=== PATIENT | male | born 1975 | race American Indian/Alaskan Native ===

== ENCOUNTER 2017-05-20 09:06 | Emergency (ER) | payer OTHER ==
[2017-05-20 09:52] LABS: Basophils % (Auto) 0.6 % (0.0-1.8); Eosinophils % (Auto) 1.7 % (0.0-4.3); Hematocrit 44.4 % (35.5-45.6); Hemoglobin 14.9 gm/dl (11.8-15.2); Mean Corpuscular HGB Conc 34 % (32-34); Mean Corpuscular Hemoglobin 29 pg (28-32); Mean Corpuscular Volume 86 fl (84-94); Platelet Count 160 K/mm3 (140-440); Red Blood Count 5.16 M/mm3 (3.65-5.03); Red Cell Distribution Width 14.4 % (13.2-15.2); White Blood Count 7.5 K/mm3 (4.5-11.0)
[2017-05-20 09:54] LABS: Anion Gap 18 mmol/L; BUN/Creatinine Ratio 14.28; Blood Urea Nitrogen 20 mg/dL (9-20); Calcium 8.8 mg/dL (8.4-10.2); Carbon Dioxide 24 mmol/L (22-30); Chloride 101.3 mmol/L (98-107); Glucose 85 mg/dL (75-100); Potassium 3.9 mmol/L (3.6-5.0); Sodium 139 mmol/L (137-145)
[2017-05-20] MEDS ORDERED: REGLAN IV ONE (16:10)
[2017-05-20] MEDS ORDERED: BENADRYL IV ONE (16:10)
--- NOTE | 2017-05-20 16:48 | Cat Scan Report ---
CRANIAL CT SCAN: Headache. Serial contiguous axial images were obtained through the cranium. Intravenous contrast material was not administered. The ventricles are normal in size and appearance. There is no mass effect or midline shift. No areas of abnormally increased or decreased attenuation are seen. No mass lesion is seen. The mastoid air cells and visualized portions of the sinuses are normal. IMPRESSION: Cranial CT scan within normal limits.
[2017-05-20 18:17] VITALS: BP 175/118
--- NOTE | 2017-05-20 18:20 | Emergency Department Report ---
ED General Adult HPI - General Chief complaint: Headache Stated complaint: PAIN IN BACK OF HEAD/CHEST PAIN Time Seen by Provider: 05/20/17 15:07 Source: patient Mode of arrival: Ambulatory Limitations: No Limitations - History of Present Illness Initial comments: Patient is a 41-year-old male past medical history high blood pressure. Patient has headache that has been going on for the last week. Patient rates pain as a 6 out of 10 nonradiating. Moving has had makes the pain worse and nothing makes it better. He has tried some Tylenol without any relief. He is also concerned about not having any blood pressure medication. No nausea no vomiting no vision changes. No traumatic injury. Severity scale (0 -10): 3 - Related Data Previous Rx's Medication Instructions Recorded Last Taken Type Acetaminophen [Acetaminophen TAB] 500 mg PO Q6HR #20 tablet 05/20/17 Unknown Rx Lisinopril [Zestril TAB] 20 mg PO BID #30 tablet 05/20/17 04/29/17 Rx Naproxen [Naprosyn TAB] 375 mg PO BID #20 tablet 05/20/17 Unknown Rx Allergies Allergy/AdvReac Type Severity Reaction Status Date / Time aspirin Allergy Hives Verified 05/20/17 18:46 ED Review of Systems ROS: Stated complaint: PAIN IN BACK OF HEAD/CHEST PAIN Other details as noted in HPI Constitutional: denies: chills, fever Eyes: denies: eye pain, eye discharge, vision change ENT: denies: ear pain, throat pain Respiratory: denies: cough, shortness of breath, wheezing Cardiovascular: denies: chest pain, palpitations Endocrine: no symptoms reported Gastrointestinal: denies: abdominal pain, nausea, diarrhea Genitourinary: denies: urgency, dysuria Musculoskeletal: denies: back pain, joint swelling, arthralgia Skin: denies: rash, lesions Neurological: headache Psychiatric: denies: anxiety, depression Hematological/Lymphatic: denies: easy bleeding, easy bruising ED Past Medical Hx - Past Medical History Hx Hypertension: Yes Hx Diabetes: No Hx Asthma: No Hx COPD: No - Surgical History Past Surgical History?: No - Social History Smoking Status: Former Smoker Substance Use Type: None - Medications Home Medications: Home Medications Medication Instructions Recorded Confirmed Last Taken Type Acetaminophen [Acetaminophen TAB] 500 mg PO Q6HR #20 tablet 05/20/17 Unknown Rx Lisinopril [Zestril TAB] 20 mg PO BID #30 tablet 05/20/17 05/20/17 04/29/17 Rx Naproxen [Naprosyn TAB] 375 mg PO BID #20 tablet 05/20/17 Unknown Rx ED Physical Exam - General Limitations: No Limitations General appearance: alert, in no apparent distress - Head Head exam: Present: atraumatic, normocephalic - Eye Eye exam: Present: normal appearance - ENT ENT exam: Present: mucous membranes moist - Neck Neck exam: Present: normal inspection - Respiratory Respiratory exam: Present: normal lung sounds bilaterally. Absent: respiratory distress - Cardiovascular Cardiovascular Exam: Present: regular rate, normal rhythm. Absent: systolic murmur, diastolic murmur, rubs, gallop - GI/Abdominal GI/Abdominal exam: Present: soft, normal bowel sounds - Extremities Exam Extremities exam: Present: normal inspection, full ROM - Back Exam Back exam: Present: normal inspection - Neurological Exam Neurological exam: Present: alert, altered, oriented X3, CN II-XII intact, normal gait, motor sensory deficit, reflexes normal - Psychiatric Psychiatric exam: Present: normal affect - Skin Skin exam: Present: warm ED Course Vital Signs 05/20/17 05/20/17 05/20/17 09:19 11:15 11:16 Temperature 97.9 F Pulse Rate 72 Respiratory 17 Rate Blood Pressure 174/112 168/110 Blood Pressure [Right] O2 Sat by Pulse 98 98 99 Oximetry 05/20/17 05/20/17 05/20/17 11:27 11:30 11:45 Temperature Pulse Rate 78 Respiratory Rate Blood Pressure 178/113 178/120 Blood Pressure [Right] O2 Sat by Pulse 97 Oximetry 05/20/17 05/20/17 05/20/17 12:00 12:09 12:30 Temperature Pulse Rate Respiratory 17 Rate Blood Pressure 172/106 180/120 Blood Pressure [Right] O2 Sat by Pulse 96 97 94 Oximetry 05/20/17 05/20/17 05/20/17 13:00 13:30 14:04 Temperature Pulse Rate Respiratory Rate Blood Pressure 186/129 186/130 213/160 Blood Pressure [Right] O2 Sat by Pulse 97 97 100 Oximetry 05/20/17 05/20/17 05/20/17 14:30 15:00 15:30 Temperature Pulse Rate Respiratory Rate Blood Pressure 175/106 160/105 169/113 Blood Pressure [Right] O2 Sat by Pulse 96 98 97 Oximetry 05/20/17 05/20/17 05/20/17 16:00 17:18 17:30 Temperature Pulse Rate 78 Respiratory 16 Rate Blood Pressure 197/130 168/107 Blood Pressure 168/107 [Right] O2 Sat by Pulse 97 99 99 Oximetry 05/20/17 05/20/17 18:00 18:43 Temperature Pulse Rate Respiratory Rate Blood Pressure 175/118 175/118 Blood Pressure [Right] O2 Sat by Pulse 98 Oximetry - Reevaluation(s) Reevaluation #1: 05/20/17 16:00 Patient states the headache is better and that he is ready to go. Will send patient with oral analgesic medication and will refill his blood pressure medication. Discussed this patient's having worsening symptoms. He can follow- up with a PCP or come to the ED ED Medical Decision Making - Lab Data Result diagrams: 05/20/17 09:29 05/20/17 09:29 - Medical Decision Making Cdx: Tension KU ddx: Migraine KU, Cluster KU, HTN 2/[address] scan will get headache cocktail, cbc, cmp and will reasses the patient . Critical care attestation.: If time is entered above; I have spent that time in minutes in the direct care of this critically ill patient, excluding procedure time. ED Disposition Clinical Impression: Tension headache, Cervicalgia Disposition: DC-01 TO HOME OR SELFCARE Is pt being admited?: No Does the pt Need Aspirin: No Condition: Good Instructions: Tension Headache (ED) Additional Instructions: Please come back to the ED after having more severe pain. Prescriptions: Acetaminophen [Acetaminophen TAB] 500 mg PO Q6HR #20 tablet Naproxen [Naprosyn TAB] 375 mg PO BID #20 tablet Referrals: PRIMARY CARE, [Primary Care Provider] - 3-5 Days Forms: Work/School Release Form(ED) Time of Disposition: 18:18
[2017-05-20] MEDS ORDERED: ZESTRIL ONE (18:36)
[2017-05-20] MEDS ORDERED: ZESTRIL PO ONE (18:42)
== END 2017-05-20 18:44 | disposition home or self-care (01) ==
LOC: ED 09:06
DX: G44.209 Tension-type headache, unspecified, not intractable (principal); M54.2 Cervicalgia; I10 Essential (primary) hypertension; Z88.6 Allergy status to analgesic agent; Z87.891 Personal history of nicotine dependence
CPT/HCPCS: 36415; 70450; 80048; 84484; 85025; 93005; 93010; 96374; 96375; 99285; J1200; J2765

== ENCOUNTER 2017-11-24 13:02 | Emergency (ER) | payer SELFPAY ==
[2017-11-24] MEDS ORDERED: TESSALON PERLES PO ONE (19:02)
[2017-11-24] MEDS ORDERED: TYLENOL PO ONE (19:02)
[2017-11-24] MEDS ORDERED: CATAPRES PO ONE ×2 (19:02→20:47)
--- NOTE | 2017-11-24 20:42 | Emergency Department Report ---
- General Chief Complaint: Upper Respiratory Infection Stated Complaint: FLU-LIKE SYMPTOMS Time Seen by Provider: 11/24/17 19:01 Source: patient Mode of arrival: Ambulatory Limitations: No Limitations - History of Present Illness Initial Comments: This is a 42-year-old male nontoxic, well nourished in appearance, no acute signs of distress presents to the ED with c/o of frontal sinus headache, productive cough, body aches, rhinorrhea, and nasal congestion x 3 day. Patient describes productive cough as yellow mucus production. Patient denies any headache just in the region in the sinus frontal. Patient denies any recent travels, long car rides, or recent hospital stays. Patient denies calf pain or calf tenderness. Patient denies drooling or hoarseness. Denies any hemoptysis. Patient denies chest pain, shortness of breath, fever, chills, nausea, vomiting, headache, stiff neck, numbness, tingling. Patient states allergies to aspirin. PMH includes HTN but has not been taking his medication of Valsartan 160mg/HCTZ 12.5mg. MD Complaint: cough, rhinorrhea, nasal congestion, sinus pain -: days(s) (3) Severity: mild Severity scale (0 -10): 8 Quality: aching Consistency: constant Improves With: nothing Worsens With: nothing Associated Symptoms: headache (frontal sinus region), rhinorrhea, nasal congestion, cough. denies: fever, chills, myalgias, diaphoresis, sore throat, stiff neck, chest pain, shortness of breath, abdominal pain, nausea, vomiting, diarrhea, dysuria, rash, confusion, right sweats, weight loss, epistaxis, hoarseness, ear pain Treatments Prior to Arrival: none - Related Data Previous Rx's Medication Instructions Recorded Last Taken Type Acetaminophen [Acetaminophen TAB] 500 mg PO Q6HR #20 tablet 05/20/17 Unknown Rx Lisinopril [Zestril TAB] 20 mg PO BID #30 tablet 05/20/17 04/29/17 Rx Naproxen [Naprosyn TAB] 375 mg PO BID #20 tablet 05/20/17 Unknown Rx Acetaminophen [Acetaminophen 8 650 mg PO Q8H PRN #30 tablet.er 11/24/17 Unknown Rx Hour] Amoxicillin/K Clav Tab [Augmentin 1 tab PO Q12HR #20 tab 11/24/17 Unknown Rx 875 mg] Benzonatate [Tessalon Perle] 100 mg PO Q6H PRN #20 capsule 11/24/17 Unknown Rx Oseltamivir [Tamiflu] 75 mg PO BID #14 cap 11/24/17 Unknown Rx Valsartan/Hydrochlorothiazide 1 each PO DAILY #30 tablet 11/24/17 Unknown Rx [Valsartan-Hctz 160-12.5 mg Tab] Allergies Allergy/AdvReac Type Severity Reaction Status Date / Time aspirin Allergy Hives Verified 05/20/17 18:46 ED Review of Systems ROS: Stated complaint: FLU-LIKE SYMPTOMS Other details as noted in HPI Constitutional: denies: chills, fever Eyes: denies: eye pain, eye discharge, vision change ENT: denies: ear pain, throat pain Respiratory: cough. denies: shortness of breath, wheezing Cardiovascular: denies: chest pain, palpitations Endocrine: no symptoms reported Gastrointestinal: denies: abdominal pain, nausea, diarrhea Genitourinary: denies: urgency, dysuria Musculoskeletal: denies: back pain, joint swelling, arthralgia Skin: denies: rash, lesions Neurological: headache. denies: weakness, paresthesias Psychiatric: denies: anxiety, depression Hematological/Lymphatic: denies: easy bleeding, easy bruising ED Past Medical Hx - Past Medical History Previous Medical History?: Yes Hx Hypertension: Yes Hx Diabetes: No Hx Asthma: No Hx COPD: No - Surgical History Past Surgical History?: No - Social History Smoking Status: Former Smoker Substance Use Type: Alcohol, Marijuana, Non Opiate Pain, Prescribed, Other - Medications Home Medications: Home Medications Medication Instructions Recorded Confirmed Last Taken Type Acetaminophen [Acetaminophen TAB] 500 mg PO Q6HR #20 tablet 05/20/17 Unknown Rx Lisinopril [Zestril TAB] 20 mg PO BID #30 tablet 05/20/17 05/20/17 04/29/17 Rx Naproxen [Naprosyn TAB] 375 mg PO BID #20 tablet 05/20/17 Unknown Rx Acetaminophen [Acetaminophen 8 650 mg PO Q8H PRN #30 tablet.er 11/24/17 Unknown Rx Hour] Amoxicillin/K Clav Tab [Augmentin 1 tab PO Q12HR #20 tab 11/24/17 Unknown Rx 875 mg] Benzonatate [Tessalon Perle] 100 mg PO Q6H PRN #20 capsule 11/24/17 Unknown Rx Oseltamivir [Tamiflu] 75 mg PO BID #14 cap 11/24/17 Unknown Rx Valsartan/Hydrochlorothiazide 1 each PO DAILY #30 tablet 11/24/17 Unknown Rx [Valsartan-Hctz 160-12.5 mg Tab] ED Physical Exam - General Limitations: No Limitations General appearance: alert, in no apparent distress - Head Head exam: Present: atraumatic, normocephalic, normal inspection - Eye Eye exam: Present: normal appearance, PERRL, EOMI. Absent: scleral icterus, conjunctival injection, nystagmus, periorbital swelling, periorbital tenderness Pupils: Present: normal accommodation - ENT ENT exam: Present: normal exam, normal orophraynx, mucous membranes moist, TM's normal bilaterally, normal external ear exam - Neck Neck exam: Present: normal inspection, full ROM. Absent: tenderness, meningismus, lymphadenopathy, thyromegaly - Respiratory Respiratory exam: Present: normal lung sounds bilaterally. Absent: respiratory distress, wheezes, rales, rhonchi, stridor, chest wall tenderness, accessory muscle use, decreased breath sounds, prolonged expiratory - Cardiovascular Cardiovascular Exam: Present: regular rate, normal rhythm, normal heart sounds. Absent: irregular rhythm, systolic murmur, diastolic murmur, rubs, gallop - GI/Abdominal GI/Abdominal exam: Present: soft, normal bowel sounds. Absent: distended, tenderness, guarding, rebound, rigid, diminished bowel sounds - Rectal Rectal exam: Present: deferred - Extremities Exam Extremities exam: Present: normal inspection, full ROM, normal capillary refill. Absent: tenderness, pedal edema, joint swelling, calf tenderness - Back Exam Back exam: Present: normal inspection, full ROM. Absent: tenderness, CVA tenderness (R), CVA tenderness (L), muscle spasm, paraspinal tenderness, vertebral tenderness, rash noted - Neurological Exam Neurological exam: Present: alert, oriented X3, CN II-XII intact, normal gait, reflexes normal - Expanded Neurological Exam Expanded Patient oriented to: Present: person, place, time Cranial nerves: EOM's Intact: Normal, Gag Reflex: Normal, Tongue Deviation: Normal, Nystagmus: Normal, Facial Sensation: Normal, Facial Palsy with Forehead Movement: Normal, Facial Palsy without Forehead Movement: Normal Cerebellar function: Finger to Nose: Normal, Heel to Lua: Normal, Romberg: Normal Upper motor neuron: Kvng Neglect: Normal, Pronator Drift: Normal, Babinski Sign : Normal, Sensory Extinction: Normal Sensory exam: Upper Extremity Light Touch: Normal, Upper Extremity Pin Prick: Normal, Upper Extremity Temperature: Normal, UE 2 Point Discrimination: Normal, Lower Extremity Light Touch: Normal, Lower Extremity Pin Prick: Normal, Lower Extremity Temperature: Normal, LE 2 Point Discrimination: Normal Motor strength exam: RUE: 5, LUE: 5, RLE: 5, LLE: 5 DTR: bicep (R): 2+, bicep (L): 2+, tricep (R): 2+, tricep (L): 2+, knee (R): 2+ , knee (L): 2+, ankle (R): 2+, ankle (L): 2+ Best Eye Response (Shyanne): (4) open spontaneously Best Motor Response (Shyanne): (6) obeys commands Best Verbal Response (Shyanne): (5) oriented Shyanne Total: 15 - Psychiatric Psychiatric exam: Present: normal affect, normal mood - Skin Skin exam: Present: warm, dry, intact, normal color. Absent: rash - Other Other exam information: Positive frontal sinus tenderness. ED Course Vital Signs 11/24/17 11/24/17 11/24/17 13:55 20:19 20:25 Temperature 99.1 F 98.0 F Pulse Rate 96 H Respiratory 18 16 Rate Blood Pressure 156/116 Blood Pressure 167/101 [Left] O2 Sat by Pulse 98 Oximetry 11/24/17 11/24/17 11/24/17 20:52 20:59 21:29 Temperature Pulse Rate 92 H 92 H 92 H Respiratory Rate Blood Pressure 167/95 Blood Pressure 165/97 155/96 [Left] O2 Sat by Pulse Oximetry - Reevaluation(s) Reevaluation #1: 11/24/17 20:40 Patient is speaking in full sentences with no signs of distress noted. ED Medical Decision Making - Medical Decision Making This is a 42-year-old male that presents with upper resp infection and sinusitis. Patient is stable and was examined by me. Chest xray has been obtained and dictated by radiologist with normal exam. Patient notified of x- ray results with no question noted by the patient. Patient received Catapres 0.2 mg and 1L of Normal saline in the ED. Vital signs stable prior to discharge. Patient is afebrile. Normal heart rate. B/P decreased. I'll treat patient empirically with augmentin and tamiflu due to symptoms worsening and symptoms of influenza at discharge. Patient received acetaminophen and tessoln perrls which patient stated symptoms are improving and subsiding. Patient was orally rehydrated in the ER and patient tolerated well with no signs of nausea or vomiting. Patient was instructed Follow-up with a primary care doctor in 3-5 days or if symptoms worsen and continue return to emergency room as soon as possible. At time time of discharge, the patient does not seem toxic or ill in appearance. No acute signs of distress noted. Patient agrees to discharge treatment plan of care. No further questions noted by the patient. This chart is dictated with using [employer]ation [employer] Critical care attestation.: If time is entered above; I have spent that time in minutes in the direct care of this critically ill patient, excluding procedure time. ED Disposition Clinical Impression: Sinusitis Qualifiers: Sinusitis location: frontal Chronicity: acute Recurrence: non-recurrent Qualified Code(s): J01.10 - Acute frontal sinusitis, unspecified Upper respiratory infection Qualifiers: URI type: unspecified URI Qualified Code(s): J06.9 - Acute upper respiratory infection, unspecified Hypertension Qualifiers: Hypertension type: unspecified Qualified Code(s): I10 - Essential (primary) hypertension Disposition: DC- TO HOME OR SELFCARE Is pt being admited?: No Does the pt Need Aspirin: No Condition: Stable Instructions: Benzonatate (By mouth), Acetaminophen (By mouth), Amoxicillin/ Clavulanate Potassium (By mouth), Oseltamivir (By mouth), Sinusitis (ED), Upper Respiratory Infection (ED), Hypertension (ED) Additional Instructions: Follow-up with a primary care doctor in 3-5 days or if symptoms worsen and continue return to emergency room as soon as possible. Increase rest, hydration, and take Motrin fever episodes as prescribed. Keep a daily diary of her blood pressure and presented to the primary care doctor Prescriptions: Acetaminophen [Acetaminophen 8 Hour] 650 mg PO Q8H PRN #30 tablet.er PRN Reason: Fever Amoxicillin/K Clav Tab [Augmentin 875 mg] 1 tab PO Q12HR #20 tab Benzonatate [Tessalon Perle] 100 mg PO Q6H PRN #20 capsule PRN Reason: Cough Oseltamivir [Tamiflu] 75 mg PO BID #14 cap Valsartan/Hydrochlorothiazide [Valsartan-Hctz 160-12.5 mg Tab] 1 each PO DAILY # 30 tablet Referrals: PRIMARY CAREMD [Primary Care Provider] - 3-5 Days EDUARD AREVALO MD [Staff Physician] - 3-5 Days [facility] [Outside] - 3-5 Days [facility] [Outside] - 3-5 Days Forms: Work/School Release Form(ED)
[2017-11-24] MEDS ORDERED: NACL 0.9% 1000 ML 1,000 ML IV ONE (20:47)
--- NOTE | 2017-11-24 21:03 | XRay Report ---
FINAL REPORT PROCEDURE: XR CHEST ROUTINE 2V TECHNIQUE: PA and lateral chest radiographs were obtained. CPT 40934 HISTORY: cough COMPARISON: No prior studies are available for comparison. FINDINGS: Heart: Normal. Mediastinum/Vessels: Normal. Lungs/Pleural space: No infiltrate, effusion, or pneumothorax. Bony thorax: No acute osseous abnormality. Other: IMPRESSION: No infiltrates are seen.
[2017-11-24 21:30] VITALS: BP 155/96
== END 2017-11-24 21:58 | disposition home or self-care (01) ==
LOC: ED 13:02
DX: J01.10 Acute frontal sinusitis, unspecified (principal); I10 Essential (primary) hypertension; F12.10 Cannabis abuse, uncomplicated; Z87.891 Personal history of nicotine dependence; Z88.6 Allergy status to analgesic agent
CPT/HCPCS: 71046; 99283

== ENCOUNTER 2018-11-25 13:10 | Emergency (ER) | payer SELFPAY ==
[2018-11-25] MEDS ORDERED: CATAPRES PO ONE (13:39)
--- NOTE | 2018-11-25 13:41 | Emergency Department Report ---
ED Medical Clearance HPI - General Chief complaint: High BP Stated complaint: HBP Source: patient Mode of arrival: Ambulatory Limitations: No Limitations - History of Present Illness Initial comments: This is a 43-year-old -[place] male who presents for evaluation of elevated blood pressure. Patient states he went to [facility] to have a physical for a new job and was told his blood pressure was too high for them to clear. Past medical history of hypertension. Patient states he has been off medication for one year due to no insurance. Patient denies chest pain, palpitations, shortness of breath, visual changes. MD Complaint: medical clearance request -: This morning Reason for Medical Clearance: other (blood pressure evaluation) Place: other (clinic) Alledged Intoxication: No Compliant with Home Medications: No Traumatic Symptoms: denies traumatic injury Associated Symptoms: denies other symptoms Treatments Prior to Arrival: none Home medications: Previous Rx's Medication Instructions Recorded Last Taken Type Acetaminophen [Acetaminophen TAB] 500 mg PO Q6HR #20 tablet 05/20/17 Unknown Rx Lisinopril [Zestril TAB] 20 mg PO BID #30 tablet 05/20/17 04/29/17 Rx Naproxen [Naprosyn TAB] 375 mg PO BID #20 tablet 05/20/17 Unknown Rx Acetaminophen [Acetaminophen 8 650 mg PO Q8H PRN #30 tablet.er 11/24/17 Unknown Rx Hour] Amoxicillin/K Clav Tab [Augmentin 1 tab PO Q12HR #20 tab 11/24/17 Unknown Rx 875 mg] Benzonatate [Tessalon Perle] 100 mg PO Q6H PRN #20 capsule 11/24/17 Unknown Rx Oseltamivir [Tamiflu] 75 mg PO BID #14 cap 11/24/17 Unknown Rx Valsartan/Hydrochlorothiazide 1 each PO DAILY #30 tablet 11/24/17 Unknown Rx [Valsartan-Hctz 160-12.5 mg Tab] Amlodipine Besylate [Norvasc] 5 mg PO DAILY #30 tablet 11/25/18 Unknown Rx hydroCHLOROthiazide 12.5 mg PO DAILY #30 tab 11/25/18 Unknown Rx [Hydrochlorothiazide] Allergies/Adverse reactions: Allergies Allergy/AdvReac Type Severity Reaction Status Date / Time aspirin Allergy Hives Verified 05/20/17 18:46 ED Review of Systems ROS: Stated complaint: HBP Other details as noted in HPI Constitutional: denies: chills, fever Eyes: denies: eye pain, eye discharge, vision change Respiratory: denies: cough, shortness of breath, wheezing Cardiovascular: denies: chest pain, palpitations Gastrointestinal: denies: abdominal pain, nausea, diarrhea Skin: denies: rash, lesions Neurological: denies: headache, weakness, paresthesias Psychiatric: denies: anxiety, depression ED Past Medical Hx - Past Medical History Hx Hypertension: Yes Hx Diabetes: No Hx Asthma: No Hx COPD: No - Social History Smoking Status: Current Every Day Smoker Substance Use Type: None - Medications Home Medications: Home Medications Medication Instructions Recorded Confirmed Last Taken Type Acetaminophen [Acetaminophen TAB] 500 mg PO Q6HR #20 tablet 05/20/17 Unknown Rx Lisinopril [Zestril TAB] 20 mg PO BID #30 tablet 05/20/17 05/20/17 04/29/17 Rx Naproxen [Naprosyn TAB] 375 mg PO BID #20 tablet 05/20/17 Unknown Rx Acetaminophen [Acetaminophen 8 650 mg PO Q8H PRN #30 tablet.er 11/24/17 Unknown Rx Hour] Amoxicillin/K Clav Tab [Augmentin 1 tab PO Q12HR #20 tab 11/24/17 Unknown Rx 875 mg] Benzonatate [Tessalon Perle] 100 mg PO Q6H PRN #20 capsule 11/24/17 Unknown Rx Oseltamivir [Tamiflu] 75 mg PO BID #14 cap 11/24/17 Unknown Rx Valsartan/Hydrochlorothiazide 1 each PO DAILY #30 tablet 11/24/17 Unknown Rx [Valsartan-Hctz 160-12.5 mg Tab] Amlodipine Besylate [Norvasc] 5 mg PO DAILY #30 tablet 11/25/18 Unknown Rx hydroCHLOROthiazide 12.5 mg PO DAILY #30 tab 11/25/18 Unknown Rx [Hydrochlorothiazide] ED Physical Exam - General Limitations: No Limitations General appearance: alert, in no apparent distress, obese - Eye Eye exam: Present: normal appearance - Respiratory Respiratory exam: Present: normal lung sounds bilaterally. Absent: respiratory distress - Cardiovascular Cardiovascular Exam: Present: regular rate, normal rhythm. Absent: systolic murmur, diastolic murmur, rubs, gallop - GI/Abdominal GI/Abdominal exam: Present: soft, normal bowel sounds - Neurological Exam Neurological exam: Present: alert, oriented X3, normal gait - Psychiatric Psychiatric exam: Present: normal affect, normal mood - Skin Skin exam: Present: warm, dry, intact, normal color. Absent: rash ED Course Vital Signs 11/25/18 11/25/18 11/25/18 13:16 13:51 13:55 Temperature 98.4 F Pulse Rate 72 78 78 Respiratory 18 Rate Blood Pressure 168/112 156/105 156/105 Blood Pressure [Right] O2 Sat by Pulse 95 Oximetry 11/25/18 15:08 Temperature Pulse Rate Respiratory Rate Blood Pressure Blood Pressure 167/107 [Right] O2 Sat by Pulse Oximetry ED Medical Decision Making - Medical Decision Making This is a 43 y.o. male that presents for evaluation of elevated blood pressure. History of HTN. Patient off losartan/HCTZ 160-12.5 mg po daily for one year. Prior to running out of medication he was only taking medicine on and off due to cost. Patient is stable and was examined by me. Given Norvasc 5 mg by mouth once while in ER. Blood pressure is trending down. Start amlodipine 5 mg po daily and hydrochlorothiazide 12.5 mg by mouth daily. Follow up with PCP in 1 week. Discussed plan with patient and agreed to plan. No further questions noted by the patient. Discharged home in stable condition. Follow up with PCP in 1 week. ED Disposition Clinical Impression: Asymptomatic hypertension Disposition: DC- TO HOME OR SELFCARE Is pt being admited?: No Does the pt Need Aspirin: No Condition: Stable Instructions: Hypertension (ED), DASH Eating Plan (ED) Additional Instructions: Encourage stop smoking to reduce cardiovascular risk. Moderate caffeine consumption is acceptable. Begin and maintain aerobic exercise, with a goal of at least 30 minutes of moderate intensity, dynamic aerobic exercise (walking, jogging, cycling, or swimming) 5 days per week to total 150 minutes as tolerated or recommended by a physician. Take medication daily as prescribed. Follow up with Primary Care Provider in 1 week. Prescriptions: Amlodipine Besylate [Norvasc] 5 mg PO DAILY #30 tablet hydroCHLOROthiazide [Hydrochlorothiazide] 12.5 mg PO DAILY #30 tab Referrals: EDUARD GARCES MD [Primary Care Provider] - 3-5 Days [facility] [Outside] - 3-5 Days [facility] [Outside] - 3-5 Days Forms: Work/School Release Form(ED) Time of Disposition: 15:20
[2018-11-25] MEDS ORDERED: NORVASC PO ONE (13:50)
[2018-11-27 12:10] VITALS: BP 167/107
== END 2018-11-25 15:27 | disposition home or self-care (01) ==
LOC: ED 13:10
DX: I10 Essential (primary) hypertension (principal); F17.200 Nicotine dependence, unspecified, uncomplicated
CPT/HCPCS: 99282